=== PATIENT | male | born 1945 | race Caucasian/White ===

== ENCOUNTER 2020-10-04 11:59 | Inpatient (IN) | payer MEDICARE ==
[~2020-10-04] VITALS: Ht 172.7 cm; Wt 59.0 kg
[2020-10-04] MEDS ORDERED: OXYC15TA2 PO (12:08)
[2020-10-04] MEDS ORDERED: CLON0.1T PO (12:08)
[2020-10-04] MEDS ORDERED: NALO1DIS2 (12:08)
[2020-10-04] MEDS ORDERED: MORP30TA59 PO (12:08)
--- NOTE | 2020-10-04 12:39 | NUR ---
Security assistance was called. Patient is agitated now and minimally directable, [email or web address].
[2020-10-04] MEDS ORDERED: HALOPERIDOL LACTATE 5 MG/1 ML VIAL ONE (12:40)
[2020-10-04] MEDS ORDERED: LORAZEPAM 2 MG/1 ML VIAL ONE (12:40)
[2020-10-04] MEDS ORDERED: diphenhydrAMINE 50 MG/1 ML VIAL ONE (12:40)
[2020-10-04] MEDS ORDERED: LORAZEPAM 2 MG/1 ML VIAL IM ONE (12:45)
[2020-10-04] MEDS ORDERED: diphenhydrAMINE 50 MG/1 ML VIAL IM ONE (12:45)
[2020-10-04] MEDS ORDERED: HALOPERIDOL LACTATE 5 MG/1 ML VIAL IM ONE (12:45)
--- NOTE | 2020-10-04 12:51 | NUR ---
Patient is waiting available MHU nurse & [email or web address] time.
--- NOTE | 2020-10-04 13:53 | NUR ---
Patient is resting comfortably on gurney with eyes closed, easily arousable. Extra warm blankets on. Lights dimmed for rest. Patient is still waiting for MHU bed & nurse.
--- NOTE | 2020-10-04 18:22 | NUR ---
Patricio [email or web address] & he is still waiting for available MHU bed & nurse at this time.
--- NOTE | 2020-10-04 19:12 | NUR ---
Assumed care of patient from day shift LITO Carpio. Patient lying in bed. Asleep at this time. In no apparent distress.
--- NOTE | 2020-10-04 20:00 | NUR ---
Pt. admitted to MHU room 139B , under care of Dr. Ruvalcaba and Dr. Navas. Report given to LITO Melgar. Belongs List completed.
[2020-10-04] MEDS ORDERED: TEMAZEPAM 7.5 MG CAPSULE PO PRN (20:15)
[2020-10-04] MEDS ORDERED: BLOOD SUGAR DIAGNOSTIC 1 EACH STRIP VI ONE (20:15)
[2020-10-04] MEDS ORDERED: MAGNESIUM HYDROXIDE 30 ML LIQUID UDC PO PRN (20:15)
[2020-10-04] MEDS ORDERED: MAG HYDROX/AL HYDROX/SIMETH 30 ML LIQUID UDC PO PRN (20:15)
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
[2020-10-04 21:06] VITALS: BP 147/68
[2020-10-04] MEDS ORDERED: HYDROCODONE/APAP 10-325 MG TABLET PO PRN (22:15)
[2020-10-05] MEDS: CLONAZEPAM 0.5 MG TABLET PO PRN (00:49)
[2020-10-05 01:04] VITALS: BP 147/68
[2020-10-05] MEDS: ONDANSETRON ODT 4 MG TAB.RAPDIS SL PRN ×2 (01:53→11:47)
--- NOTE | 2020-10-05 01:55 | NUR ---
PATIENT NOTED VOMITING. HE WAS HELPED AND MONITORED. HOB WAS ELEVATED TO [address] MOLINA WAS NOTIFIED AND NEW ORDER OBTAINED TO ADMINISTER ZOFRAN 4MG ODT Q6HRS PRN NAUSEA AND VOMITING. ORDER WAS NOTED AND CARRIED OUT. WILL CONTINUE TO MONITOR.
[2020-10-05 07:30] VITALS: BP 188/71
[2020-10-05] MEDS: CLONIDINE HCL 0.1 MG TABLET PO PRN ×2 (07:45→15:36)
--- NOTE | 2020-10-05 08:00 | NUR ---
RECEIVED PATIENT AOX1, PATIENT APPEARS TO BE WEAK, IN HIS BED, PATIENT FLAIL VOICE, DENIES SI AND HI AT THIS TIME, PATIENT VERBALIZES OF PAIN AND HAD HIS PAIN MEDICATION JUST BEFORE THE START OF THE SHIFT, PATIENT BLOOD PRESSURE RANGES TO 190/60-180/60, PRN CLONIDINE WAS GIVEN , PATIENT PREOCCUPIED WITH HIS MORPHINE MEDICATION, PATIENT BLOOD ALSO COMPLAINS OF HAVING CHEST PAIN , PROCUREMENT SPECIALIST MIRACLE AWARE, PATIENT ON MONITORING FOR SAFETY
[2020-10-05 08:29] LABS: BASOPHILS # (AUTO) 0.1 K/uL (0.0-8.0); BASOPHILS % (AUTO) 0.7 % (0.0-2.0); HEMOGLOBIN 14.9 g/dL (12.5-16.3); LYMPHOCYTES # (AUTO) 0.7 K/uL (20.0-40.0); LYMPHOCYTES % (AUTO) 4.3 % (20.5-51.5); MEAN CORPUSCULAR HEMOGLOBIN 29.8 uug (23.8-33.4); MEAN CORPUSCULAR HGB CONC 34 g/dL (32.5-36.3); MEAN CORPUSCULAR VOLUME 87.9 fL (73.0-96.2); MONOCYTES # (AUTO) 0.5 K/uL (2.0-10.0); MONOCYTES % (AUTO) 3.1 % (0.0-11.0); NEUTROPHILS # (AUTO) 14.8 K/uL (1.8-8.9); NEUTROPHILS % (AUTO) 91.9 % (38.5-71.5); PLATELET COUNT (AUTO) 342 K/uL (152-348); RED BLOOD CELL COUNT(AUTO) 5.01 MIL/uL (4.06-5.63); WHITE BLOOD COUNT (AUTO) 16.2 K/uL (3.6-10.2)
[2020-10-05 08:30] LABS: BILIRUBIN,TOTAL 0.4 mg/dL (0.2-1.0); CREATININE 1.2 mg/dL (0.6-1.3); PHOSPHOROUS 3.9 mg/dL (2.5-4.9); POTASSIUM 3.3 mmol/L (3.5-5.1); TOTAL PROTEIN, SERUM 7.8 g/dL (6.4-8.2)
[2020-10-05 08:44] LABS: THYROID STIMULATING HORMONE 0.215 mIU/mL (0.358-3.740)
[2020-10-05] MEDS ORDERED: NICOTINE 7 MG/24HR PATCH TD SCH (09:00)
[2020-10-05] MEDS: NICOTINE 7 MG/24HR PATCH TD SCH (09:24)
[2020-10-05] MEDS ORDERED: POTASSIUM CHLORIDE 20 MEQ TAB.PRT.SR PO ONE (09:30)
[2020-10-05] MEDS: DULOXETINE 30 MG CAPSULE.DR PO SCH (10:42)
--- NOTE | 2020-10-05 11:19 | NUR ---
Firearms Report: Compliance Assistant completed and submitted a DOJ firearms report for 5150 danger to self certifications. A copy of report has been placed in patient chart.
[2020-10-05] MEDS ORDERED: NITROGLYCERIN 0.4 MG/TAB BOTTLE SL PRN (11:30)
[2020-10-05] MEDS ORDERED: NALOXONE HCL 0.4 MG/ML AMPUL IM PRN (11:30)
--- NOTE | 2020-10-05 11:50 | NUR ---
PATIENT HAD 1 EPISODE OF VOMITTING, PRN MEDICATION WAS GIVEN , WATER AEROBICS INSTRUCTOR MIRACLE WAS UPDATED, ULTRASOUND OF ABDOMEN WAS ORDERED, AND LIPASE WELL, WILL CONTINUE MONITOR
[2020-10-05] MEDS: MORPHINE SULFATE SR 15 MG TABLET.SA PO SCH ×2 (12:06→21:39)
[2020-10-05 16:00] VITALS: BP 199/78
[2020-10-05] MEDS: ENSURE ENLIVE (VAN) 240 ML LIQUID PO SCH (17:00)
[2020-10-05 17:14] LABS: *BILIRUBIN,URIN 1+ (NEGATIVE); *BLOOD, URINE 2+ (NEGATIVE); *CLARITY,URINE CLEAR (CLEAR); *COLOR,URINE YELLOW (YELLOW); *KETONES,URINE 2+ (NEGATIVE); *UROBILINOGEN,URINE 0.2 E.U./dl (NORMAL); LEUKOCYTE ESTERASE ,URINE NEGATIVE (NEGATIVE); NITRITE, URINE NEGATIVE (NEGATIVE); UGLUCOSE NEGATIVE (NEGATIVE)
--- NOTE | 2020-10-05 17:54 | NUR ---
collected urine sample, MEMBER OF TECHNICAL STAFF aware, patient appears to be weak and been sleeping mostly in his room, patient unable to eat his dinner, will continue monitor
[2020-10-05 20:16] VITALS: BP 104/56
[2020-10-05] MEDS: SIMVASTATIN 10 MG TABLET PO SCH (20:46)
[2020-10-05] MEDS: QUETIAPINE FUMARATE 25 MG TABLET PO SCH (20:46)
[2020-10-05 23:48] LABS: BACTERIA,URINE FEW /HPF (NONE SEEN); SQUAMOUS EPITHELIAL CELL,UR FEW /HPF (NONE SEEN); WBC,URINE 0-3 /HPF (0-3)
--- NOTE | 2020-10-06 05:56 | NUR ---
Shamar slept 7 hours; pt unstable on feet; assistance given; had a small BM; took his MS Contin and slept; compliant with meds; safety maintained; needs attended.
[2020-10-06 07:30] VITALS: BP 108/48
[2020-10-06 08:16] LABS: CREATININE 1.1 mg/dL (0.6-1.3)
[2020-10-06] MEDS: DULOXETINE 30 MG CAPSULE.DR PO SCH (08:47)
[2020-10-06] MEDS: ENSURE ENLIVE (VAN) 240 ML LIQUID PO SCH ×3 (09:00→17:00)
[2020-10-06] MEDS ORDERED: LISINOPRIL 5 MG TABLET PO SCH (09:00)
[2020-10-06] MEDS: MORPHINE SULFATE SR 15 MG TABLET.SA PO SCH ×2 (09:07→20:45)
[2020-10-06] MEDS: NICOTINE 7 MG/24HR PATCH TD SCH (09:19)
--- NOTE | 2020-10-06 10:42 | NUR ---
SADIA Initial Discharge Plan: Patient is currently homeless in the [facility]. Patient may require SNF placement upon discharge. Patient is unwilling to discuss discharge plan at this time. Patient does not have any next of kin or emergency contacts. SADIA will continue to work with patient and MD to ensure a safe and proper discharge plan.
--- NOTE | 2020-10-06 10:45 | NUR ---
Brief Substance Abuse Intervention: Patient was provided with a brief substance abuse intervention for Marijuana use and referred to [facility] [address], [place] [address] ([phone]); [facility] [address], [address], [place] [address] ([phone]); [facility] ([phone]); [facility] ([phone]); [facility] ([phone]); and National Suicide Prevention Lifeline ([phone]).
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
[2020-10-06 15:05] VITALS: BP 103/58
--- NOTE | 2020-10-06 18:12 | NUR ---
Gps/information clerk brokerage- Housekeeping came to nurses station, informed staff pt. found sitting on the floor. patient assisted back to bed. Patient has not eaten dinner yet, set up his dinner, encouraged to start eating. Fluid encouraged . B/P 82/49 left arm,HR 67, 02 sat 92% , denies pain. no dizziness, claimed she just feel weak. reviewed safety, bed alarm on, instructed to wait for help before getting up by himself. patient had been ambulating around using FWW during the day . Continent of urine, used urinal after dinner, voided 200 ml bala urine.
[2020-10-06 20:16] VITALS: BP 105/56
[2020-10-06] MEDS: SIMVASTATIN 10 MG TABLET PO SCH (20:44)
[2020-10-06] MEDS: QUETIAPINE FUMARATE 25 MG TABLET PO SCH (20:44)
--- NOTE | 2020-10-07 05:57 | NUR ---
GPS: REMAIN AOX1, PATIENT APPEARS TO BE WEAK,LYING IN HIS BED, DENIES SI AND HI AT THIS TIME, NO C/O PAIN OR DISCOMFORT AT THIS TIME, SLEPT 8.15 HRS THROUGH THE NIGHT. CONTINUE MONITORING FOR SAFETY
[2020-10-07 07:30] VITALS: BP 110/55
[2020-10-07 08:18] LABS: BASOPHILS % (AUTO) 0.4 % (0.0-2.0); EOSINOPHILS # (AUTO) 0.2 K/uL (0.0-0.7); EOSINOPHILS % (AUTO) 2.2 % (0.0-7.0); HEMATOCRIT 42.4 % (36.7-47.1); HEMOGLOBIN 14.3 g/dL (12.5-16.3); LYMPHOCYTES # (AUTO) 2.2 K/uL (20.0-40.0); LYMPHOCYTES % (AUTO) 20.5 % (20.5-51.5); MEAN CORPUSCULAR HEMOGLOBIN 29.7 uug (23.8-33.4); MEAN CORPUSCULAR HGB CONC 34 g/dL (32.5-36.3); MONOCYTES # (AUTO) 0.8 K/uL (2.0-10.0); MONOCYTES % (AUTO) 7.5 % (0.0-11.0); NEUTROPHILS # (AUTO) 7.4 K/uL (1.8-8.9); NEUTROPHILS % (AUTO) 69.4 % (38.5-71.5); PLATELET COUNT (AUTO) 335 K/uL (152-348); RED BLOOD CELL COUNT(AUTO) 4.81 MIL/uL (4.06-5.63); WHITE BLOOD COUNT (AUTO) 10.7 K/uL (3.6-10.2)
[2020-10-07 08:32] LABS: CREATININE 1.1 mg/dL (0.6-1.3); MAGNESIUM 2.2 mg/dL (1.8-2.4); PHOSPHOROUS 3.3 mg/dL (2.5-4.9); POTASSIUM 4.6 mmol/L (3.5-5.1)
[2020-10-07] MEDS: DULOXETINE 30 MG CAPSULE.DR PO SCH (09:51)
[2020-10-07] MEDS: MORPHINE SULFATE SR 15 MG TABLET.SA PO SCH ×2 (09:52→20:34)
[2020-10-07] MEDS: ENSURE ENLIVE (VAN) 240 ML LIQUID PO SCH ×3 (09:52→16:59)
[2020-10-07] MEDS: LISINOPRIL 5 MG TABLET PO SCH (09:53)
[2020-10-07] MEDS: NICOTINE 7 MG/24HR PATCH TD SCH (09:53)
[2020-10-07] MEDS: ACETAMINOPHEN 325 MG TABLET PO PRN (10:18)
[2020-10-07] MEDS ORDERED: HALOPERIDOL LACTATE 5 MG/1 ML VIAL IM ONE (12:15)
[2020-10-07] MEDS ORDERED: diphenhydrAMINE 50 MG/1 ML VIAL IM ONE (12:15)
[2020-10-07] MEDS ORDERED: LORAZEPAM 2 MG/1 ML VIAL IM ONE (12:15)
--- NOTE | 2020-10-07 12:15 | NUR ---
PT CURRENTLY AT NURSES STATION, HIGHLY AGITATED, DISRUPTIVE, AND IRRITABLE. REFUSES TO LEAVE NURSES STATION, YELLING AT NURSES. PT VERBALIZING INAPPROPRIATE THINGS SUCH "YOU MUST USE THAT HOLE BETWEEN YOUR LEGS TO MANIPULATE MEN, DON'T YOU." PT HAS EPISODES OF LAYING ON THE FLOOR, REFUSING TO GET UP. UNREDIRECTABLE AT THIS TIME. CALLED DR. PAULINO. RECEIVED ORDER FOR IM MEDICATION. NOTED AND WILL CARRY OUT.
[2020-10-07] MEDS ORDERED: QUETIAPINE FUMARATE 25 MG TABLET PO PRN (16:30)
[2020-10-07] MEDS ORDERED: OLANZAPINE 10 MG VIAL IM ONE (17:00)
[2020-10-07] MEDS: SIMVASTATIN 10 MG TABLET PO SCH (20:33)
[2020-10-07] MEDS: QUETIAPINE FUMARATE 25 MG TABLET PO SCH (20:39)
--- NOTE | 2020-10-08 06:20 | NUR ---
GPS: REMAIN CONFUSED THROUGH THE NIGHT. AOX1, PATIENT AMBULATE WITH FWW. DENIES SI AND HI AT THIS TIME, NO C/O PAIN OR DISCOMFORT AT THIS TIME, SLEPT 9.45 HRS THROUGH THE NIGHT. CONTINUE MONITORING FOR SAFETY
[2020-10-08 07:30] VITALS: BP 90/43
[2020-10-08] MEDS: LISINOPRIL 5 MG TABLET PO SCH (08:44)
[2020-10-08] MEDS: ENSURE ENLIVE (VAN) 240 ML LIQUID PO SCH ×3 (09:00→16:18)
[2020-10-08] MEDS: NICOTINE 7 MG/24HR PATCH TD SCH (09:00)
[2020-10-08] MEDS: MORPHINE SULFATE SR 15 MG TABLET.SA PO SCH ×3 (09:00→20:33)
[2020-10-08] MEDS: NICOTINE 14 MG/24HR PATCH TD SCH (10:53)
[2020-10-08] MEDS ORDERED: HALOPERIDOL LACTATE 5 MG/1 ML VIAL IM ONE (12:15)
[2020-10-08] MEDS ORDERED: diphenhydrAMINE 50 MG/1 ML VIAL IM ONE (12:15)
[2020-10-08] MEDS ORDERED: LORAZEPAM 2 MG/1 ML VIAL IM ONE (12:15)
[2020-10-08] MEDS ORDERED: OLANZAPINE ZYDIS 5 MG TAB.RAPDIS PO PRN (13:00)
[2020-10-08] MEDS: OLANZAPINE 2.5 MG TABLET PO SCH ×2 (13:13→16:17)
[2020-10-08 16:00] VITALS: BP 107/64
--- NOTE | 2020-10-08 20:00 | NUR ---
RECEIVED PATIENT IN HER ROOM IN BED SLEEPING BUT EASILY AROUSABLE. PATIENT NOTED A/O 3. HE IS NOTED HYPERVERBAL, HYPER-CONFUCIANISM, TANGENTAL. AFFECT IS FLAT, MOOD IS IRRITABLE, SPEECH IS DISORGANIZED. PATIENT DENIED SI/HL/VH/AH. HE IS ABLE TO CFS. HE IS REASSURED FOR HIS SAFETY. SAFETY AND FALL PRECAUTION IN PLACE. V/S STABLE. WILL CONTINUE TO MONITOR.
[2020-10-08 20:09] VITALS: BP 101/60
[2020-10-08] MEDS: SIMVASTATIN 10 MG TABLET PO SCH (20:33)
[2020-10-08] MEDS: OLANZAPINE 5 MG TABLET PO SCH (20:33)
[2020-10-09 07:30] VITALS: BP 102/56
[2020-10-09] MEDS: OLANZAPINE 2.5 MG TABLET PO SCH ×3 (08:30→17:03)
[2020-10-09] MEDS: ENSURE ENLIVE (VAN) 240 ML LIQUID PO SCH ×3 (08:30→17:00)
[2020-10-09] MEDS: MORPHINE SULFATE SR 15 MG TABLET.SA PO SCH ×2 (08:30→20:36)
[2020-10-09] MEDS: NICOTINE 14 MG/24HR PATCH TD SCH (08:31)
[2020-10-09] MEDS: LISINOPRIL 5 MG TABLET PO SCH (08:31)
[2020-10-09] MEDS: ACETAMINOPHEN 325 MG TABLET PO PRN (15:07)
[2020-10-09 15:29] VITALS: BP 113/55
[2020-10-09 20:18] VITALS: BP 112/55
[2020-10-09] MEDS: OLANZAPINE 5 MG TABLET PO SCH (20:35)
[2020-10-09] MEDS: SIMVASTATIN 10 MG TABLET PO SCH (20:37)
--- NOTE | 2020-10-09 21:00 | NUR ---
RECEIVED PATIENT IN HIS ROOM IN BED. HE IS NOTED AWAKE A/O X 2. HE IS LESS ISOLATIVE LES WIHTDRAWN. PATIENT CONTINUE HYPERVERBAL, HYPER-RASTAFARI, CIRCUMSTANTIAL. APPERS DEPRESSED BUT PATIENT DENIED SI. HE IS ABLE TO VERBALLY CFS. HE IS REASSURED FOR HIS SAFETY. V/S STABLE. SAFETY AND FALL PRECAUTION IN PLACE. WILL CONTINUE TO MONITOR. .
[2020-10-09] MEDS: CLONAZEPAM 0.5 MG TABLET PO PRN (22:27)
[2020-10-09] MEDS ORDERED: HALOPERIDOL LACTATE 5 MG/1 ML VIAL IM STA (23:47)
[2020-10-09] MEDS ORDERED: LORAZEPAM 2 MG/1 ML VIAL IM STA (23:47)
[2020-10-09] MEDS ORDERED: diphenhydrAMINE 50 MG/1 ML VIAL IM STA (23:47)
--- NOTE | 2020-10-09 23:55 | NUR ---
Patient noted irritable, hyperverbal, requesting restoril. patient does not have restoril; hoever, he has Zyprexa PRN. He noted verbally aggressive. Multiple redirection given, patient, refused Zyprexa PRN. After redirection and reassurance, patient is able to calm nick and went back to his room.
--- NOTE | 2020-10-10 07:29 | NUR ---
Patient slept for approx 3hrs through. no aggressive combative bx was noted after midnight. will continue to monitor.
[2020-10-10] MEDS: MORPHINE SULFATE SR 15 MG TABLET.SA PO SCH ×2 (08:46→20:32)
[2020-10-10] MEDS: OLANZAPINE 2.5 MG TABLET PO SCH (08:46)
[2020-10-10] MEDS: NICOTINE 14 MG/24HR PATCH TD SCH (08:46)
[2020-10-10] MEDS: LISINOPRIL 5 MG TABLET PO SCH (08:47)
[2020-10-10] MEDS: ENSURE ENLIVE (VAN) 240 ML LIQUID PO SCH ×3 (08:47→17:00)
[2020-10-10] MEDS: OLANZAPINE 5 MG TABLET PO SCH ×3 (10:30→17:22)
--- NOTE | 2020-10-10 11:16 | NUR ---
SNF Referral: Faxed patient's referral packet attention to [facility] to the following facilities for review and possible placement [facility] ([phone]), [facility] ([phone]), [facility] ([phone]), [facility] ([phone]). Addendum: 10/12/20 at 1103 by WALTER WELSH Patient is accepted at [facility].
--- NOTE | 2020-10-10 14:37 | NUR ---
SADIA PC Hearing: Patient had 5250 probable cause hearing today and it was upheld for grave disability and danger to himself.
[2020-10-10 20:21] VITALS: BP 115/71
[2020-10-10] MEDS: CLONAZEPAM 0.5 MG TABLET PO PRN (20:31)
[2020-10-10] MEDS: SIMVASTATIN 10 MG TABLET PO SCH (20:32)
[2020-10-10] MEDS: TEMAZEPAM 15 MG CAPSULE PO PRN (23:49)
--- NOTE | 2020-10-11 04:29 | NUR ---
patient noted hyperverbal, argumentative, required multiple redirections. will continue to monitor.
[2020-10-11] MEDS: CLONAZEPAM 0.5 MG TABLET PO PRN (05:53)
[2020-10-11 07:30] VITALS: BP 118/56
[2020-10-11] MEDS: MORPHINE SULFATE SR 15 MG TABLET.SA PO SCH ×2 (08:24→20:51)
[2020-10-11] MEDS: LISINOPRIL 5 MG TABLET PO SCH (08:25)
[2020-10-11] MEDS: NICOTINE 14 MG/24HR PATCH TD SCH (08:25)
[2020-10-11] MEDS: OLANZAPINE 5 MG TABLET PO SCH ×2 (08:25→16:45)
[2020-10-11] MEDS: ENSURE ENLIVE (VAN) 240 ML LIQUID PO SCH ×3 (08:26→16:45)
--- NOTE | 2020-10-11 08:30 | NUR ---
RECEIVED PATIENT IN ROOM AWAKE ALERT EATING HIS BREAKFAST COMPLIANT WITH MEDICATIONS AND CARE DENIES SI ENCOURAGED PATIENT TO PARTICIPATE IN ACTIVITIES AND GET OUT OF HIS ROOM AND EXPRESSED UNDERSTANDING
[2020-10-11 16:40] VITALS: BP 121/58
[2020-10-11 20:10] VITALS: BP 129/59
[2020-10-11] MEDS: SIMVASTATIN 10 MG TABLET PO SCH (20:51)
[2020-10-11] MEDS: TEMAZEPAM 15 MG CAPSULE PO PRN (21:58)
[2020-10-12 07:30] VITALS: BP 116/46
[2020-10-12] MEDS: OLANZAPINE 5 MG TABLET PO SCH ×2 (08:43→18:08)
[2020-10-12] MEDS: LISINOPRIL 5 MG TABLET PO SCH (08:44)
[2020-10-12] MEDS: ENSURE ENLIVE (VAN) 240 ML LIQUID PO SCH ×3 (08:45→17:00)
[2020-10-12] MEDS: MORPHINE SULFATE SR 15 MG TABLET.SA PO SCH ×2 (08:45→20:22)
[2020-10-12] MEDS: NICOTINE 14 MG/24HR PATCH TD SCH (08:46)
--- NOTE | 2020-10-12 11:50 | NUR ---
SADIA Individual Therapy Note: SW met with patient today and provided brief individual counseling to address patient's presenting problem of suicidal ideation. SW assessed patient's level of suicidality. Patient refuses to speak with this writer producer at this time. Patient presents laying down in his bed in his room. Patient presents withdrawn and isolative. SW attempted to have a conversation with the patient however patient ignored this social human services assistants. SW will remain available for patient for continued supportive counseling.
[2020-10-12] MEDS: CLONAZEPAM 0.5 MG TABLET PO PRN (14:38)
--- NOTE | 2020-10-12 14:56 | NUR ---
Gps/Valuation Consultant- Anxious, walking around w/ fww, requesting morpine to be given more often. Informed needed to talk to Internal med. Patient appeared to be comfortable, lesser pain. remains in the activity room watching TV.safety emphasized
[2020-10-12 16:00] VITALS: BP 141/54
[2020-10-12] MEDS: SIMVASTATIN 10 MG TABLET PO SCH (20:22)
[2020-10-12 20:23] VITALS: BP 140/51
[2020-10-12] MEDS: TEMAZEPAM 15 MG CAPSULE PO PRN (22:17)
--- NOTE | 2020-10-13 03:25 | NUR ---
RECEIVED PATIENT IN HIS ROOM AWAKE.ISOLATIVE AND IRRITABLE.AFFECT IS FLAT. DEMANDING TO HAVE HIS MORPHINE SULFATE NOW.HE WAS TOLD TO WAIT TILL THE RIGHT TIME. SPEECH IS DISORGANIZED. DENIES SI/HL/VH/AH. LATER REQUESTED FOR RESTORIL. SAME GIVEN AND SLEPT FAIRLY WELL AFTER. SAFETY AND FALL PRECAUTION IN PLACE.HE USES A FWW.VISUAL CHECKS MADE ON HIM FOR SAFETY. WILL CONTINUE TO MONITOR.
--- NOTE | 2020-10-13 06:54 | NUR ---
HE SLEPT FOR 4:30 HOURS.UP AND BEING INTRUSIVE.
[2020-10-13 07:30] VITALS: BP 116/46
[2020-10-13] MEDS: MORPHINE SULFATE SR 15 MG TABLET.SA PO SCH ×2 (08:16→21:07)
[2020-10-13] MEDS: OLANZAPINE 5 MG TABLET PO SCH ×2 (08:17→17:28)
[2020-10-13] MEDS: NICOTINE 14 MG/24HR PATCH TD SCH (08:17)
[2020-10-13] MEDS: LISINOPRIL 5 MG TABLET PO SCH (08:18)
[2020-10-13] MEDS: ENSURE ENLIVE (VAN) 240 ML LIQUID PO SCH ×3 (08:31→17:27)
[2020-10-13 14:09] LABS: BASOPHILS # (AUTO) 0.1 K/uL (0.0-8.0); EOSINOPHILS # (AUTO) 0.4 K/uL (0.0-0.7); HEMATOCRIT 39.2 % (36.7-47.1); HEMOGLOBIN 13.4 g/dL (12.5-16.3); LYMPHOCYTES # (AUTO) 2.6 K/uL (20.0-40.0); LYMPHOCYTES % (AUTO) 28.4 % (20.5-51.5); MEAN CORPUSCULAR HEMOGLOBIN 30.3 uug (23.8-33.4); MEAN CORPUSCULAR HGB CONC 34 g/dL (32.5-36.3); MEAN CORPUSCULAR VOLUME 88.5 fL (73.0-96.2); MONOCYTES % (AUTO) 11.4 % (0.0-11.0); NEUTROPHILS % (AUTO) 55.2 % (38.5-71.5); PLATELET COUNT (AUTO) 404 K/uL (152-348); RED BLOOD CELL COUNT(AUTO) 4.43 MIL/uL (4.06-5.63); WHITE BLOOD COUNT (AUTO) 9.1 K/uL (3.6-10.2)
[2020-10-13 14:10] LABS: POTASSIUM 4.3 mmol/L (3.5-5.1)
[2020-10-13] MEDS: CLONAZEPAM 0.5 MG TABLET PO PRN (14:45)
[2020-10-13] MEDS: ACETAMINOPHEN 325 MG TABLET PO PRN (14:45)
[2020-10-13 15:37] VITALS: BP 125/51
[2020-10-13 20:33] VITALS: BP 121/82
[2020-10-13] MEDS: SIMVASTATIN 10 MG TABLET PO SCH (21:04)
[2020-10-14] MEDS: TEMAZEPAM 15 MG CAPSULE PO PRN ×2 (00:04→22:52)
--- NOTE | 2020-10-14 06:04 | NUR ---
GPS: Pt.slept for 6.15 last night. No increased agitation noted. Insight and judgement impaired. Anxious at times but re-directable. Safe environment provided. Will continue to monitor.
[2020-10-14] MEDS: CLONAZEPAM 0.5 MG TABLET PO PRN ×2 (06:53→20:44)
[2020-10-14 07:30] VITALS: BP 118/58
[2020-10-14] MEDS: MORPHINE SULFATE SR 15 MG TABLET.SA PO SCH ×2 (08:32→20:45)
[2020-10-14] MEDS: OLANZAPINE 5 MG TABLET PO SCH ×2 (08:32→17:18)
[2020-10-14] MEDS: LISINOPRIL 5 MG TABLET PO SCH (08:33)
[2020-10-14] MEDS: ENSURE ENLIVE (VAN) 240 ML LIQUID PO SCH ×3 (08:33→17:18)
[2020-10-14] MEDS: NICOTINE 14 MG/24HR PATCH TD SCH (08:33)
[2020-10-14 16:00] VITALS: BP 114/54
[2020-10-14] MEDS: SIMVASTATIN 10 MG TABLET PO SCH (20:45)
[2020-10-14 20:47] VITALS: BP 131/61
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
[2020-10-15 07:30] VITALS: BP 124/58
[2020-10-15] MEDS: OLANZAPINE 5 MG TABLET PO SCH ×2 (09:04→16:35)
[2020-10-15] MEDS: MORPHINE SULFATE SR 15 MG TABLET.SA PO SCH ×2 (09:05→20:25)
[2020-10-15] MEDS: NICOTINE 14 MG/24HR PATCH TD SCH (09:05)
[2020-10-15] MEDS: ENSURE ENLIVE (VAN) 240 ML LIQUID PO SCH ×3 (09:05→16:35)
[2020-10-15] MEDS: LISINOPRIL 5 MG TABLET PO SCH (09:09)
[2020-10-15] MEDS: CLONAZEPAM 0.5 MG TABLET PO PRN ×2 (14:14→18:59)
[2020-10-15 15:27] VITALS: BP 125/54
--- NOTE | 2020-10-15 17:29 | NUR ---
Gps/Production Machine Shop Supervisor- Patient looking forward to be discharged tomorrow, requesting to have all belongings , be returned back to him. Informed valuables will be given back to him when he leaves the Hosp. Reviewed medications as he requested .
[2020-10-15] MEDS: ACETAMINOPHEN 325 MG TABLET PO PRN (18:58)
[2020-10-15 20:22] VITALS: BP 127/59
[2020-10-15] MEDS: SIMVASTATIN 10 MG TABLET PO SCH (20:25)
[2020-10-16] MEDS: TEMAZEPAM 15 MG CAPSULE PO PRN ×2 (01:52→21:42)
--- NOTE | 2020-10-16 06:42 | NUR ---
Patient slept for approx. 4 hrs through the night. He is complaint with medication regiment diet and plan of care, will continue to monitor.
[2020-10-16 07:30] VITALS: BP 100/52
[2020-10-16] MEDS: MORPHINE SULFATE SR 15 MG TABLET.SA PO SCH ×2 (08:42→20:45)
[2020-10-16] MEDS: NICOTINE 14 MG/24HR PATCH TD SCH (08:42)
[2020-10-16] MEDS: OLANZAPINE 5 MG TABLET PO SCH ×2 (08:42→17:07)
[2020-10-16] MEDS: LISINOPRIL 5 MG TABLET PO SCH (08:43)
[2020-10-16] MEDS: ENSURE ENLIVE (VAN) 240 ML LIQUID PO SCH ×3 (08:43→17:00)
--- NOTE | 2020-10-16 09:15 | NUR ---
Discharge Note: Patient will be discharged to halfway facility, [facility] [address] [place] [address] ([phone]). Patient is provided with ambulance transportation at 11:00am today. Solar Electric/Photovoltaic Installer spoke with Cary, Community Outreach Manager at [facility] ([phone]), and he confirmed that patient will be accepted at their facility today. Patient does not have any family or next of kin contacts at this time. Patient is alert and oriented x4. Patient is not able to plan for self-care at this time, however, is willing to accept care provided for him at the facility. Patient denies suicidal or homicidal ideation. Patient is aware and agreeable with discharge plans. Patient presents with appropriate mood and congruent affect. Patient will follow-up with Psychiatrist Dr. Navas and [place] Leverman Dr. Wheeler at [facility]. Patient signed the homeless waiver upon discharge and a copy was placed in the chart. Homeless resources were provided and include 211 information line for shelters and homeless resources. A copy of all resources given to patient was also placed in the chart.
[2020-10-16] MEDS: CLONAZEPAM 0.5 MG TABLET PO PRN ×2 (11:40→22:17)
[2020-10-16 15:25] VITALS: BP 126/65
[2020-10-16 20:22] VITALS: BP 121/57
[2020-10-16] MEDS: SIMVASTATIN 10 MG TABLET PO SCH (20:45)
--- NOTE | 2020-10-17 05:28 | NUR ---
GPS: Remain calm and cooperative with meds and diet. No increased agitation noted at this time. poor Insight and judgement . Anxious at times but re-directable. klonopin po prn given x1 for agitation and effective.Safe environment provided. Will continue to monitor.
--- NOTE | 2020-10-17 05:58 | NUR ---
GPS: Pt.slept for 2.30 HRS THROUGH THE NIGHT AFTER SLEEPING MEDS GIVEN.
--- NOTE | 2020-10-17 08:20 | NUR ---
Discharge Note: Patient will be discharged to assisted facility, [facility] [address] [place] [address] ([phone]). Patient is provided with ambulance transportation at 1:00PM today. Highwall Drill Operator spoke with Cary, Railcar Carpenter at [facility] ([phone]), and he confirmed that patient will be accepted at their facility today. Patient does not have any family or next of kin contacts at this time. Patient is alert and oriented x4. Patient is not able to plan for self-care at this time, however, is willing to accept care provided for him at the facility. Patient denies suicidal or homicidal ideation. Patient is aware and agreeable with discharge plans. Patient presents with appropriate mood and congruent affect. Patient will follow-up with Psychiatrist Dr. Navas and Horse Identifier Dr. Wheeler at [facility]. Patient signed the homeless waiver upon discharge and a copy was placed in the chart. Homeless resources were provided and include 211 information line for shelters and homeless resources. A copy of all resources given to patient was also placed in the chart.
[2020-10-17 08:27] VITALS: BP 116/56
[2020-10-17] MEDS: MORPHINE SULFATE SR 15 MG TABLET.SA PO SCH (08:46)
[2020-10-17] MEDS: OLANZAPINE 5 MG TABLET PO SCH (08:46)
[2020-10-17] MEDS: LISINOPRIL 5 MG TABLET PO SCH ×2 (08:46→13:29)
[2020-10-17] MEDS: NICOTINE 14 MG/24HR PATCH TD SCH (08:46)
[2020-10-17] MEDS: ENSURE ENLIVE (VAN) 240 ML LIQUID PO SCH ×2 (08:47→12:47)
[2020-10-17] MEDS: CLONAZEPAM 0.5 MG TABLET PO PRN (11:24)
[2020-10-17 13:29] VITALS: BP 162/68
== END 2020-10-17 13:45 | DRG 885 ==
LOC: ER 11:59 → GPS 19:54
PROVIDERS: ADMIT Psychiatry & Neurology Psychiatry; ATTEND Nurse Practitioner Acute Care
DX: F32.3 Major depressive disorder, single episode, severe with psychotic features (principal); N17.0 Acute kidney failure with tubular necrosis; F23 Brief psychotic disorder; D68.69 Other thrombophilia; Z68.1 Body mass index [BMI] 19.9 or less, adult; F17.210 Nicotine dependence, cigarettes, uncomplicated; Z59.0 Homelessness; Z74.09 Other reduced mobility; E87.6 Hypokalemia; G89.29 Other chronic pain; I10 Essential (primary) hypertension; K80.20 Calculus of gallbladder without cholecystitis without obstruction; D72.829 Elevated white blood cell count, unspecified; Z20.822 Contact with and (suspected) exposure to COVID-19; R62.7 Adult failure to thrive; R73.9 Hyperglycemia, unspecified; E78.5 Hyperlipidemia, unspecified; M19.90 Unspecified osteoarthritis, unspecified site; S30.1XXA Contusion of abdominal wall, initial encounter; X58.XXXA Exposure to other specified factors, initial encounter; Y93.9 Activity, unspecified; Y92.89 Other specified places as the place of occurrence of the external cause
CPT/HCPCS: 36415; 70030-TC; 71045; 83690; 83735; 83970; 84100; 84443; 84481; 85025; 93005; A4663; A9150; J1200; J1630; J2060; J2358; Q0162